=== PATIENT | female | born 1995 | race Caucasian/White ===

== ENCOUNTER → 2020-10-17 | Outpatient (CLI) | payer BC, OTHER ==
[~2020-10-17] MED LIST: CIPROFLOXACIN500 M1 PO; DIFLUCAN150 MG PO; MIRENA1 EACH IY; ZOFRAN4 MG PO
== END ==
LOC: EXRD 14:30
DX: N39.0 Urinary tract infection, site not specified (principal); N13.30 Unspecified hydronephrosis; R33.9 Retention of urine, unspecified
CPT/HCPCS: 76775; 76857

== ENCOUNTER 2020-11-16 09:26 | Emergency (ER) | payer BC, OTHER ==
[~2020-11-16 09:26] MED LIST changes: -ZOFRAN4 MG PO
[2020-11-16 10:41] LABS: HEMOGLOBIN 15.1 gm/dl (12.3-15.3); RED BLOOD COUNT 4.95 M/UL (4.00-5.10); WHITE BLOOD COUNT 12.4 K/UL (4.5-11.0)
[2020-11-16 11:17] LABS: BUN/CREATININE RATIO 13 (0-10)
[2020-11-16] MEDS ORDERED: ZOFRAN4 MG PO (13:07)
== END 2020-11-16 13:25 | disposition home or self-care (01) ==
LOC: ER1 09:26
PROVIDERS: Internal Medicine
DX: R30.0 Dysuria (principal); R11.2 Nausea with vomiting, unspecified; E78.5 Hyperlipidemia, unspecified
CPT/HCPCS: 80053; 81001; 84703; 85025; 96374; 99284; J2405; J7120

== ENCOUNTER → 2020-11-30 | Outpatient (CLI) | payer BC, OTHER ==
[~2020-11-30] MED LIST changes: +ZOFRAN4 MG PO
== END ==
LOC: CT 12:38
DX: N13.30 Unspecified hydronephrosis (principal); N39.0 Urinary tract infection, site not specified
CPT/HCPCS: Q9967